=== PATIENT | male | born 1960 | race Caucasian/White ===

== ENCOUNTER → 2016-11-20 | Outpatient (CLI) | payer OTHER | LOC: FIMAGING 16:58 | PROVIDERS: ATTEND Orthopaedic Surgery | DX: I82.441 Acute embolism and thrombosis of right tibial vein (principal); I82.491 Acute embolism and thrombosis of other specified deep vein of right lower extremity ==

== ENCOUNTER → 2017-11-16 | Outpatient (CLI) | payer OTHER | LOC: BMCIMAGING 13:57 | PROVIDERS: ATTEND Internal Medicine | DX: R50.9 Fever, unspecified (principal); M48.54XA Collapsed vertebra, not elsewhere classified, thoracic region, initial encounter for fracture ==

== ENCOUNTER 2018-04-29 18:17 | Emergency (ER) | payer OTHER ==
--- NOTE | 2018-04-29 19:11 | EDPHY ---
H & P Stated Complaint: R hand injury from fa Time Seen by Provider: 04/29/18 18:45 HPI/ROS: CHIEF COMPLAINT: Right hand pain HISTORY OF PRESENT ILLNESS: 57-year-old male presents after a fall with right hand pain. He slipped and fell on an outstretched hand this afternoon while hiking. Immediate onset of moderate right hand pain. The pain is now mild, persistent and increases with movement. Associated with hand swelling. No other injuries. ROS: No numbness, weakness, bleeding, syncopal episode, other injury. - Personal History Current Tetanus Diphtheria and Acellular Pertussis (TDAP): Yes - Medical/Surgical History Hx Asthma: No Hx Chronic Respiratory Disease: No Hx Diabetes: No Hx Cardiac Disease: No Hx Renal Disease: No Other PMH: Hernia repair - Social History Smoking Status: Never smoked Alcohol Use: Sober Additional Social History: - Physical Exam Exam: Alert, pleasant Right hand: tenderness and swelling along the proximal 3rd metacarpal area, compression of 3rd digit causes pain in same area, no tenderness of digits or remainder of hand; no snuffbox tenderness, no other wrist tenderness, no pain with wrist ROM Skin: intact, no abrasion Vascular: 2+ radial pulse, cap refill brisk Neuro: motor/sensory intact Constitutional: Initial Vital Signs Temperature (C) 36.9 C 04/29/18 18:22 Heart Rate 68 04/29/18 18:22 Respiratory Rate 16 04/29/18 18:22 Blood Pressure 106/71 04/29/18 18:22 O2 Sat (%) 97 04/29/18 18:22 O2 Delivery Mode Room Air Allergies/Adverse Reactions: No Known Allergies Allergy (Verified 04/29/18 18:24) Home Medications: Medication Instructions Recorded NK [No Known Home Meds] 04/29/18 Medical Decision Making - Diagnostics Imaging Results: Hand X-Ray 04/29/18 18:30 Impression: Third metacarpal fracture as well as age-indeterminate avulsion at the base of the proximal phalanx of the right fourth digit. Wrist X-Ray 04/29/18 18:30 Impression: Suspect triquetral avulsion fracture. Imaging: I viewed and interpreted images myself Procedures: An OrthoGlass volar wrist splint was placed by the tower technician. Neurovascularly intact after application. ED Course/Re-evaluation: This patient presents with a metacarpal fracture. An Orthoglass splint was placed by the tower technician. Pain is controlled with ibuprofen. Follow-up instructions discussed. Departure - Departure Disposition: Home, Routine, Self-Care Clinical Impression: Fracture, metacarpal Condition: Good Instructions: Hand Fracture (ED) Additional Instructions: Keep your hand elevated whenever possible. Apply ice for 20 min every 2-3 hours. Tylenol 650 mg every 4 hr as needed for pain. Referrals: Abhinav Valdez MD [Primary Care Provider] - As per Instructions Octavio Martin MD [Medical Doctor] - As per Instructions (Call to make an appointment.)
[2018-04-29 19:38] VITALS: BP 112/70
== END 2018-04-29 19:37 | disposition home or self-care (01) ==
PROC: 2W3EX1Z Immobilization of Right Hand using Splint (ICD-10-PCS; principal; 2018-04-29)
DX: S62.322A Displaced fracture of shaft of third metacarpal bone, right hand, initial encounter for closed fracture (principal); M89.8X8 Other specified disorders of bone, other site; W01.0XXA Fall on same level from slipping, tripping and stumbling without subsequent striking against object, initial encounter; Y93.01 Activity, walking, marching and hiking; Y92.828 Other wilderness area as the place of occurrence of the external cause

== ENCOUNTER → 2018-05-08 | Outpatient (CLI) | payer OTHER | LOC: BMCIMAGING 13:23 | PROVIDERS: ATTEND Orthopaedic Surgery Hand Surgery | DX: S62.352D Nondisplaced fracture of shaft of third metacarpal bone, right hand, subsequent encounter for fracture with routine healing (principal) ==